=== PATIENT | female | born 1955 | race Caucasian/White ===

== ENCOUNTER 2023-07-04 20:19 | Inpatient (IN) | payer MEDICARE, OTHER ==
[~2023-07-04] VITALS: Ht 170.2 cm; Wt 56.3 kg
[2023-07-04 22:11] LABS: Basophils # (auto) 0 10 ^3/uL (0-0.2); Basophils % (auto) 0.3 % (0.0-2.0); Eosinophils # (auto) 0 10 ^3/uL (0-0.8); Hematocrit 41.1 % (36.0-46.0); Hemoglobin 13.7 g/dL (12.2-16.2); Lymphocytes # (auto) 0.1 10 ^3/uL (0.4-5.4); Mean Corpuscular Hemoglobin 31.2 pg (28.0-32.0); Mean Corpuscular Hgb Conc. 33.3 g/dL (32.0-36.0); Mean Corpuscular Volume 93.8 fL (80.0-100.0); Monocytes # (auto) 0.6 10 ^3/uL (0-1.3); Monocytes % (auto) 7.5 % (0.0-12.0); Neutrophils # (auto) 7.9 10 ^3/uL (1.6-8.6); Neutrophils % (auto) 91.2 % (37.0-80.0); Nucleated Red Blood Cells % 0.1 %; Red Blood Cells 4.38 10^6/uL (4.0-5.20); Red Cell Distribution Width 14.9 % (11.8-14.3); White Blood Cell 8.6 10^3/uL (4.4-10.8)
[2023-07-04] MEDS: SODIUM CHLORIDE 0.9% 1,000 ML IV ONE (22:16)
[2023-07-04 22:20] LABS: Alanine Aminotransferase 75 U/L (7-40); Alkaline Phosphatase 81 U/L (46-116); Anion Gap 8 (5-15); Aspartate Aminotransferase 90 U/L (13-40); BUN/Creatinine Ratio 17.2 (10.0-20.0); Blood Urea Nitrogen 17 mg/dL (9-23); Carbon Dioxide 22 mmol/L (20-30); Chloride 105 mmol/L (98-107); Glucose 127 mg/dL (74-106); Potassium 3.8 mmol/L (3.5-5.1); Sodium 135 mmol/L (136-145)
[2023-07-04 22:21] LABS: Bilirubin, Total 0.8 mg/dL (0.2-1.0); Total Protein 5.8 g/dL (5.7-8.2)
[2023-07-04 23:08] LABS: INR 1.09 (0.9-1.15); Partial Thromboplastin Time 28.8 SEC (24.5-34.5); Prothrombin Time 11.4 sec (9.3-11.8)
[2023-07-04] MEDS: ACETAMINOPHEN 500 MG TAB PO ONE (23:26)
[2023-07-05] MEDS: traMADol HCL 50 MG TAB PO ONE (00:16)
[2023-07-05 00:17] LABS: Urine Bacteria NONE SEEN /hpf (None Seen); Urine Blood Negative /uL (Negative); Urine Clarity Clear (Clear); Urine Color Yellow (Yellow); Urine Mucus FEW (None Seen); Urine Protein, UAD TRACE (Negative); Urine Urobilinogen Normal (Negative); Urine WBC 3 /hpf (0 - 5); Urine pH 5.5 (5.0-8.0)
[2023-07-05] MEDS: ONDANSETRON HCL 4 MG/2 ML VIAL IV ONE (00:17)
[2023-07-05 01:10] LABS: Amphetamine Screen, Urine Neg (NEGATIVE); Barbiturate Scree,Urine Neg (NEGATIVE); Benzodiazephine Screen, Urine Neg (NEGATIVE); Cocaine Screen, Urine Neg (NEGATIVE)
[2023-07-05 01:11] LABS: Cannabinoid Screen, Urine Neg (NEGATIVE); Opiate Scree,Urine Neg (NEGATIVE); Phencyclidine Screen, Urine Neg (NEGATIVE)
[2023-07-05 01:48] LABS: COVID19 ANTIGEN SOFIA FIA NEGATIVE (NEGATIVE)
[2023-07-05 02:06] LABS: Urine Specific Gravity 1.078 (1.001-1.035)
[2023-07-05 02:07] LABS: Rapid Influenza A Negative (Negative); Rapid Influenza B Negative (Negative)
[2023-07-05] MEDS ORDERED: DOCUSATE SOD 100 MG CAP PO PRN (02:15)
[2023-07-05] MEDS ORDERED: HYDROcodone-ACET 5/325MG TAB PO PRN (02:15)
[2023-07-05] MEDS ORDERED: ONDANSETRON HCL 4 MG/2 ML VIAL IV PRN (02:15)
[2023-07-05] MEDS ORDERED: IBUPROFEN 600 MG TAB PO PRN (02:15)
[2023-07-05] MEDS: SODIUM CHLORIDE 0.9% 1,000 ML IV SCH ×2 (03:00→10:48)
[2023-07-05 03:18] VITALS: PULSE 75; RESP 16; O2SAT 97
[2023-07-05 06:11] LABS: Basophils # (auto) 0 10 ^3/uL (0-0.2); Eosinophils # (auto) 0 10 ^3/uL (0-0.8); Eosinophils % (auto) 0.4 % (0.0-7.0); Hematocrit 38.7 % (36.0-46.0); Lymphocytes # (auto) 0.3 10 ^3/uL (0.4-5.4); Mean Corpuscular Hemoglobin 31.4 pg (28.0-32.0); Mean Corpuscular Hgb Conc. 33.6 g/dL (32.0-36.0); Mean Corpuscular Volume 93.3 fL (80.0-100.0); Monocytes # (auto) 0.5 10 ^3/uL (0-1.3); Neutrophils # (auto) 5.9 10 ^3/uL (1.6-8.6); Neutrophils % (auto) 88.6 % (37.0-80.0); Nucleated Red Blood Cells % 0.1 %; Red Blood Cells 4.15 10^6/uL (4.0-5.20); Red Cell Distribution Width 14.7 % (11.8-14.3); White Blood Cell 6.7 10^3/uL (4.4-10.8)
[2023-07-05 06:19] LABS: Alanine Aminotransferase 245 U/L (7-40); Alkaline Phosphatase 82 U/L (46-116); Calcium 8.4 mg/dL (8.7-10.4)
[2023-07-05 06:20] LABS: Albumin 3.6 g/dL (3.2-4.8); Anion Gap 7 (5-15); Aspartate Aminotransferase 575 U/L (13-40); BUN/Creatinine Ratio 19.6 (10.0-20.0); Bilirubin, Total 1.4 mg/dL (0.2-1.0); Blood Urea Nitrogen 18 mg/dL (9-23); Carbon Dioxide 22 mmol/L (20-30); Chloride 108 mmol/L (98-107); Glucose 113 mg/dL (74-106); Potassium 3.7 mmol/L (3.5-5.1); Sodium 137 mmol/L (136-145); Total Protein 5.4 g/dL (5.7-8.2)
[2023-07-05] MEDS ORDERED: MORPHINE SULFATE INJ 2 MG/ml SYRG IV PRN (08:00)
[2023-07-05] MEDS ORDERED: NITROGLYCERIN 0.4 MG SL TAB SL PRN (08:00)
[2023-07-05] MEDS ORDERED: traMADol HCL 50 MG TAB PO PRN ×2 (10:30)
[2023-07-05] MEDS: ASPirin 81 mg TAB PO SCH (10:48)
[2023-07-05] MEDS: SODIUM CHLORIDE 0.9% 1,000 ML IV ONE (10:48)
[2023-07-05] MEDS: methylPREDNISolone SOD SUCC 40 MG/ML VL IV ONE (10:57)
[2023-07-05] MEDS: metroNIDAZOLE 500 MG TAB PO SCH (14:21)
[2023-07-05] MEDS: PREGABALIN 25 MG CAP PO SCH (14:21)
[2023-07-05 17:21] LABS: Magnesium 1.8 mg/dL (1.6-2.6)
[2023-07-05 19:38] VITALS: PULSE 70; RESP 21; O2SAT 97
[2023-07-05] MEDS: traMADol HCL 50 MG TAB PO PRN (22:14)
[2023-07-05] MEDS: HEPARIN SODIUM (PORCINE) 5000 UNITS/ML 1ML VIAL SC SCH (22:17)
[2023-07-06 05:28] LABS: Basophils # (auto) 0 10 ^3/uL (0-0.2); Basophils % (auto) 0.1 % (0.0-2.0); Eosinophils # (auto) 0 10 ^3/uL (0-0.8); Eosinophils % (auto) 0.4 % (0.0-7.0); Hematocrit 36.1 % (36.0-46.0); Hemoglobin 12.1 g/dL (12.2-16.2); Lymphocytes # (auto) 0.7 10 ^3/uL (0.4-5.4); Lymphocytes % (auto) 17.2 % (10.0-50.0); Mean Corpuscular Hemoglobin 31.1 pg (28.0-32.0); Mean Corpuscular Hgb Conc. 33.6 g/dL (32.0-36.0); Mean Corpuscular Volume 92.6 fL (80.0-100.0); Monocytes # (auto) 0.5 10 ^3/uL (0-1.3); Monocytes % (auto) 12.3 % (0.0-12.0); Neutrophils # (auto) 2.7 10 ^3/uL (1.6-8.6); Red Cell Distribution Width 14.7 % (11.8-14.3); White Blood Cell 3.8 10^3/uL (4.4-10.8)
[2023-07-06 05:37] LABS: Alanine Aminotransferase 190 U/L (7-40); Albumin 3.3 g/dL (3.2-4.8); Alkaline Phosphatase 83 U/L (46-116); Anion Gap 7 (5-15); Aspartate Aminotransferase 116 U/L (13-40); BUN/Creatinine Ratio 11.8 (10.0-20.0); Bilirubin, Total 0.6 mg/dL (0.2-1.0); Calcium 8.5 mg/dL (8.7-10.4); Carbon Dioxide 21 mmol/L (20-30); Chloride 111 mmol/L (98-107); Glucose 93 mg/dL (74-106); Potassium 3.6 mmol/L (3.5-5.1); Sodium 139 mmol/L (136-145); Total Protein 5.2 g/dL (5.7-8.2)
[2023-07-06 06:30] LABS: Blood Urea Nitrogen 8 mg/dL (9-23)
[2023-07-06 07:45] VITALS: PULSE 61; RESP 18; O2SAT 97
[2023-07-06 09:07] LABS: Hepatitis B Core Total AB Negative (Negative)
[2023-07-06] MEDS: ADENOSINE 47 MG in GIVE UN-DILUTED 0 ML IV ONE (10:08)
[2023-07-06] MEDS: methylPREDNISolone SOD SUCC 40 MG/ML VL IV SCH (11:27)
[2023-07-06 11:44] LABS: Hepatitis A Total Antibody Positive (Negative)
[2023-07-06 11:45] LABS: Hepatitis B Surface Antibody Negative (Negative); Hepatitis B Surface Antigen Negative (Negative); Hepatitis C Antibody Negative (Negative)
[2023-07-06] MEDS ORDERED: FLUO-381 TOP (12:09)
[2023-07-06] MEDS ORDERED: TRI05TP TOP (12:09)
[2023-07-06] MEDS ORDERED: MELO-335 PO (12:09)
[2023-07-06] MEDS ORDERED: METH4TAB9 PO (12:09)
[2023-07-06] MEDS ORDERED: IPRA0.03 EACHNOSTRI (12:09)
[2023-07-06] MEDS ORDERED: MUPI2OIN2 EX (12:09)
[2023-07-06] MEDS ORDERED: MONT10TA23 PO (12:09)
[2023-07-06] MEDS ORDERED: PREG75CA PO (12:09)
[2023-07-06] MEDS ORDERED: TRAZ-227 PO (12:09)
[2023-07-06] MEDS ORDERED: FINA5TAB4 PO (12:09)
[2023-07-06] MEDS ORDERED: FLUT50SP EACHNOSTRI (12:09)
[2023-07-06 12:26] VITALS: BP 100/60; PULSE 59; RESP 14
[2023-07-06] MEDS: LORazepam 0.5 MG TAB PO PRN (18:06)
[2023-07-07 04:48] LABS: Basophils # (auto) 0 10 ^3/uL (0-0.2); Basophils % (auto) 0.1 % (0.0-2.0); Eosinophils # (auto) 0 10 ^3/uL (0-0.8); Eosinophils % (auto) 0.1 % (0.0-7.0); Hematocrit 37.1 % (36.0-46.0); Hemoglobin 12.5 g/dL (12.2-16.2); Lymphocytes # (auto) 0.9 10 ^3/uL (0.4-5.4); Lymphocytes % (auto) 15.2 % (10.0-50.0); Mean Corpuscular Hemoglobin 31.2 pg (28.0-32.0); Mean Corpuscular Hgb Conc. 33.8 g/dL (32.0-36.0); Mean Corpuscular Volume 92.3 fL (80.0-100.0); Monocytes # (auto) 0.7 10 ^3/uL (0-1.3); Monocytes % (auto) 12.1 % (0.0-12.0); Neutrophils # (auto) 4.2 10 ^3/uL (1.6-8.6); Neutrophils % (auto) 72.5 % (37.0-80.0); Red Blood Cells 4.01 10^6/uL (4.0-5.20); Red Cell Distribution Width 14.7 % (11.8-14.3); White Blood Cell 5.8 10^3/uL (4.4-10.8)
[2023-07-07 04:55] LABS: Calcium 9.2 mg/dL (8.7-10.4); Chloride 111 mmol/L (98-107); Potassium 3.5 mmol/L (3.5-5.1); Sodium 142 mmol/L (136-145)
[2023-07-07 04:56] LABS: Anion Gap 9 (5-15); Carbon Dioxide 22 mmol/L (20-30)
[2023-07-07 05:01] LABS: BUN/Creatinine Ratio 15.9 (10.0-20.0); Blood Urea Nitrogen 10 mg/dL (9-23); Glucose 104 mg/dL (74-106)
[2023-07-07 09:59] VITALS: PULSE 82; RESP 20; O2SAT 96
[2023-07-07] MEDS: SODIUM CHLORIDE 0.9% 500 ML IV ONE (11:39)
[2023-07-07 15:10] VITALS: BP 122/80; PULSE 62; RESP 16; TEMP 98.1; O2SAT 97
== END 2023-07-07 15:15 | disposition home or self-care (01) | DRG 640 ==
LOC: ER 20:19 → TELE 07-05 07:50
PROVIDERS: ADMIT Internal Medicine Pulmonary Disease; ATTEND Internal Medicine Pulmonary Disease
DX: E86.0 Dehydration (principal); I21.4 Non-ST elevation (NSTEMI) myocardial infarction; N17.9 Acute kidney failure, unspecified; I25.10 Atherosclerotic heart disease of native coronary artery without angina pectoris; A08.4 Viral intestinal infection, unspecified; G89.4 Chronic pain syndrome; K76.0 Fatty (change of) liver, not elsewhere classified; R73.03 Prediabetes; N18.2 Chronic kidney disease, stage 2 (mild); M19.09 Primary osteoarthritis, other specified site; Z88.3 Allergy status to other anti-infective agents
CPT/HCPCS: 36415; 70450; 70551; 71045; 71275; 76705; 78452; 80048; 80053; 80061; 80307; 80320; 81001; 82550; 83036; 83605; 83735; 83880; 84443; 84484; 85025; 85379; 85610; 85730; 86704; 86706; 86708; 86803; 87040; 87086; 87340; 87426; 87804; 93005; 93017; 93306; 93886; 93970; 96361; 96374; 96375; 97163; G0378; J0153; J2405